=== PATIENT | male | born 1955 | race Caucasian/White ===

== ENCOUNTER 2019-02-22 02:04 | Emergency (ER) | payer MEDICARE, MEDICAID ==
[~2019-02-22] VITALS: Ht 167.6 cm; Wt 72.0 kg
--- NOTE | 2019-02-22 02:20 | NUR ---
WOUND TO THE RIGHT PROXIMAL SIDE OF THE KNEE. PT STATED IT WAS "A NAIL " LEFT FOREARM AND HAND WITH WOUNDS "FROM A DOG BITE" HEALING INTACT REDDENED NO DRAINAGE OPEN TO AIR
[2019-02-22] MEDS ORDERED: CEPH500C5 PO (03:26)
[2019-02-22] MEDS ORDERED: cephalexin 500mg capsule PO ONE (03:30)
[2019-02-22 04:05] VITALS: BP 116/66
== END 2019-02-22 04:41 | disposition home or self-care (01) ==
LOC: ER 02:04
DX: S51.852A Open bite of left forearm, initial encounter (principal); S61.452A Open bite of left hand, initial encounter; S60.312A Abrasion of left thumb, initial encounter; L03.115 Cellulitis of right lower limb; E11.9 Type 2 diabetes mellitus without complications; F12.90 Cannabis use, unspecified, uncomplicated; Z88.8 Allergy status to other drugs, medicaments and biological substances; Z79.899 Other long term (current) drug therapy; W54.0XXA Bitten by dog, initial encounter; Y93.89 Activity, other specified; Y92.89 Other specified places as the place of occurrence of the external cause; Y99.8 Other external cause status
CPT/HCPCS: 29125; 99283

== ENCOUNTER 2019-08-02 10:21 | Emergency (ER) | payer MEDICARE, MEDICAID ==
[~2019-08-02] VITALS: Ht 167.6 cm; Wt 72.7 kg
[~2019-08-02 10:21] MED LIST: CEPH500C5 PO
[2019-08-02] MEDS ORDERED: ketorolac trometh inj. 60 MG/2 ML VIAL IM ONE (12:15)
[2019-08-02 12:30] VITALS: BP 127/81
== END 2019-08-02 12:31 | disposition home or self-care (01) ==
LOC: ER 10:21
DX: M54.41 Lumbago with sciatica, right side (principal); G89.29 Other chronic pain; E11.9 Type 2 diabetes mellitus without complications; F12.90 Cannabis use, unspecified, uncomplicated; Z88.6 Allergy status to analgesic agent
CPT/HCPCS: 96372; 99283; J1885

== ENCOUNTER 2019-09-27 10:53 | Emergency (ER) | payer MEDICARE, MEDICAID ==
[~2019-09-27] VITALS: Ht 167.6 cm; Wt 71.4 kg
[2019-09-27 10:56] VITALS: BP 106/61
[2019-09-27] MEDS ORDERED: CYCL-1 PO (12:02)
[2019-09-27] MEDS ORDERED: ketorolac tromethamine 15mg/ml inj. IM ONE (12:05)
[2019-09-27] MEDS ORDERED: ketorolac trometh. 30mg/ml inj. IM ONE (12:05)
== END 2019-09-27 12:38 | disposition home or self-care (01) ==
LOC: ER 10:53
DX: M54.41 Lumbago with sciatica, right side (principal); F12.90 Cannabis use, unspecified, uncomplicated; Z88.6 Allergy status to analgesic agent
CPT/HCPCS: 96372; 99283; J1885